=== PATIENT | female | born 1980 ===

== ENCOUNTER 2018-06-27 11:34 | Outpatient (CLI) | payer OTHER | END 2018-06-27 15:00 | disposition home or self-care (01) | LOC: LAB 11:34 | DX: D68.8 Other specified coagulation defects (principal) ==

== ENCOUNTER 2018-11-12 12:10 | Inpatient (IN) | payer OTHER ==
[~2018-11-12] VITALS: Ht 172.7 cm; Wt 3.2 kg
== END 2018-11-15 12:32 | disposition home or self-care (01) | DRG 785 ==
LOC: LDR 12:10 → OB/GYN 12:10 → O/R 12:10 → OB/GYN 15:01
PROVIDERS: ADMIT Obstetrics & Gynecology
PROC: 0UL70ZZ Occlusion of Bilateral Fallopian Tubes, Open Approach (ICD-10-PCS; 2018-11-12)
PROC: 4A0HXFZ Measurement of Products of Conception, Cardiac Rhythm, External Approach (ICD-10-PCS; 2018-11-12)
PROC: 10D00Z1 Extraction of Products of Conception, Low, Open Approach (ICD-10-PCS; principal; 2018-11-12 15:00)
DX: O76 Abnormality in fetal heart rate and rhythm complicating labor and delivery (principal); Z3A.39 39 weeks gestation of pregnancy; Z37.0 Single live birth; Z22.330 Carrier of Group B streptococcus; Z30.2 Encounter for sterilization